=== PATIENT | female | born 1950 | race Caucasian/White ===

== ENCOUNTER 2018-02-03 10:13 | Day surgery (SDC) | payer MEDICARE ==
[~2018-02-03 10:13] MED LIST: LIDOCAINE 1% PF 2 ML VIAL. ID; ONDANSETRON PF 4 MG/2 ML VIAL. IV; PROCHLORPERAZINE 10 MG/2 ML VIAL. IV; fentaNYL PF VIAL 100 MCG/2 ML VIAL IV
[2018-02-03] MEDS ORDERED: PROPOFOL 20 ML IV (10:52)
[2018-02-03] MEDS ORDERED: MIDAZOLAM HCL/PF 2 MG/2 ML VIAL. (10:52)
[2018-02-03] MEDS ORDERED: fentaNYL PF VIAL 100 MCG/2 ML VIAL (10:52)
[2018-02-03] MEDS ORDERED: LIDOCAINE 2% PF Vial for OR 5 ML VIAL. ×2 (10:52→11:02)
[2018-02-03] MEDS ORDERED: DEXAMETHASONE SOD PHOS 20 MG/5 ML VIAL. (10:52)
[2018-02-03] MEDS ORDERED: ONDANSETRON PF 4 MG/2 ML VIAL. (10:52)
[2018-02-03] MEDS: IV RINGERS,LACTATED 1000ML 1,000 ML IV (10:53)
[2018-02-03] MEDS: CLINDAMYCIN 900MG PREMIX 50 ML IV (11:52)
[2018-02-03] MEDS: LIDOCAINE 1% PF 30 ML VIAL. (12:04)
[2018-02-03] MEDS: BUPIVACAINE 0.5% 50 ML VIAL. (12:04)
[2018-02-03] MEDS ORDERED: SEVOFLURANE 16 TO 30 MINUTES. IH (12:27)
[2018-02-03] MEDS ORDERED: traMADol 50 MG TABLET (13:02)
[2018-02-03] MEDS: traMADol 50 MG TABLET PO (13:03)
== END 2018-02-03 13:37 | disposition home or self-care (01) ==
LOC: SURG 10:13
DX: T84.84XA Pain due to internal orthopedic prosthetic devices, implants and grafts, initial encounter (principal); K21.9 Gastro-esophageal reflux disease without esophagitis; J45.909 Unspecified asthma, uncomplicated; Z86.718 Personal history of other venous thrombosis and embolism; Z87.440 Personal history of urinary (tract) infections; G89.18 Other acute postprocedural pain; Z98.890 Other specified postprocedural states; Z87.891 Personal history of nicotine dependence; Z79.899 Other long term (current) drug therapy; Z88.0 Allergy status to penicillin; Z88.2 Allergy status to sulfonamides; Z88.5 Allergy status to narcotic agent; Y83.1 Surgical operation with implant of artificial internal device as the cause of abnormal reaction of the patient, or of later complication, without mention of misadventure at the time of the procedure; Y92.89 Other specified places as the place of occurrence of the external cause; Z72.89 Other problems related to lifestyle
CPT/HCPCS: 20680; 76000; A7015; J1100; J2250; J2405; J2704; J3010; J3490

== ENCOUNTER → 2021-05-14 | Outpatient (CLI) | payer OTHER ==
[2018-02-03 13:07] VITALS: BP 147/72
[~2021-05-14] MED LIST changes: +ACET325T9 PO; +DIPH25TA64 PO; -LIDOCAINE 1% PF 2 ML VIAL. ID; +MULT-445 PO; +NAPR220C4 PO; +ONDA8TAB12 PO; -ONDANSETRON PF 4 MG/2 ML VIAL. IV; -PROCHLORPERAZINE 10 MG/2 ML VIAL. IV; +TRAM50TA PO; -fentaNYL PF VIAL 100 MCG/2 ML VIAL IV
--- NOTE | 2021-05-14 22:33 | CARD ---
MR#: [id number] Date of Study: 05/14/2021 Ordering Physician: ROSARIO STEWARD, Referring Physician: ROSARIO STEWARD, Tech: Megan Madden [facility] APPROVED REPORT EXAM: Two-dimensional and M-mode echocardiogram with Doppler and color Doppler. Other Information Quality : AverageHR: 63bpm Rhythm : NSR INDICATION Murmur 2D DIMENSIONS RVDd3.3 (2.9-3.5cm)Left Atrium(2D)3.3 (1.6-4.0cm) IVSd1.5 (0.7-1.1cm)Aortic Root(2D)2.7 (2.0-3.7cm) LVDd4.5 (3.9-5.9cm)LVOT Diameter2.0 (1.8-2.4cm) PWd1.4 (0.7-1.1cm)LVDs2.2 (2.5-4.0cm) FS (%) 50.9 %SV75.4 ml LVEF(%)82.3 (>50%) Aortic Valve AoV Peak Addison.211.7cm/sAoV VTI46.5cm AO Peak GR.17.9mmHgLVOT Peak Addison.114.7cm/s AO Mean GR.9mmHgAVA (VMAX)1.68cm2 Mitral Valve MV E Vlgmrbiy96.4cm/sMV DECEL JFIN893ze MV A Opphbwbj50.5cm/sE/A Ratio0.8 Pulmonary Valve PV Peak Vlalkoeq904.2cm/s Tricuspid Valve TR P. Dpumuojc201oa/sTR Peak Gr.31mmHg LEFT VENTRICLE The left ventricle is normal size. There is mild concentric left ventricular hypertrophy. The left ve ntricular systolic function is normal and the ejection fraction is within normal range. Estimated eje ction fraction 65%. There is normal LV segmental wall motion. Transmitral Doppler flow pattern is Gra de I-abnormal relaxation pattern. RIGHT VENTRICLE The right ventricle is normal size. There is normal right ventricular wall thickness. The right ventr icular systolic function is normal. ATRIA The left atrium size is normal. The right atrium size is normal. The interatrial septum is intact wit h no evidence for an atrial septal defect or patent foramen ovale as noted on 2-D or Doppler imaging. AORTIC VALVE The aortic valve is calcified with restricted leaflet motion. Doppler and Color Flow revealed no sign ificant aortic regurgitation. There is mild aortic stenosis visually. Color/doppler evaluation reveal s no significant stenosis by gradient criteria. MITRAL VALVE The mitral valve is normal in structure and function. There is no evidence of mitral valve prolapse. There is no mitral valve stenosis. Doppler and Color-flow revealed mild mitral regurgitation. TRICUSPID VALVE The tricuspid valve is normal in structure and function. Doppler and Color Flow revealed mild tricusp id regurgitation. RVSP 31 mm Hg. There is no tricuspid valve stenosis. PULMONIC VALVE Doppler and Color Flow revealed no pulmonic valvular regurgitation. There is no pulmonic valvular daniela nosis. GREAT VESSELS The aortic root is normal in size. The ascending aorta is normal in size. The IVC is normal in size a nd collapses >50% with inspiration. PERICARDIAL EFFUSION There is no evidence of significant pericardial effusion. Critical Notification Critical Value: No <Conclusion> The left ventricular systolic function is normal and the ejection fraction is within normal range. E stimated ejection fraction 65%. There is normal LV segmental wall motion. There is mild concentric left ventricular hypertrophy. There is mild aortic stenosis visually. Color/doppler evaluation reveals no significant stenosis by g radient criteria. Doppler and Color Flow revealed mild tricuspid regurgitation. RVSP 31 mm Hg. Signed by : Rosario Steward, Electronically Approved : 05/14/2021 22:32:18
== END ==
LOC: ECHO 12:49
PROVIDERS: ATTEND Internal Medicine Cardiovascular Disease
DX: I08.3 Combined rheumatic disorders of mitral, aortic and tricuspid valves (principal); R01.1 Cardiac murmur, unspecified
CPT/HCPCS: 93306

== ENCOUNTER → 2021-05-27 | Outpatient (CLI) | payer OTHER ==
[2018-02-03 13:07] VITALS: BP 147/72
[~2021-05-27] MED LIST changes: +CONTRAST GIVEN. MC PRN; +IOHEXOL 300 MG/ML 100ML VIAL. IV ONE
--- NOTE | 2021-05-27 12:13 | KCIC ---
CT THORAX W History: Dyspnea. Left-sided chest pain for one month. Comparison: None. Technique: CT of the chest with intravenous contrast. Multiplanar reconstruction are provided. Findings: Pulmonary arteries: No large or central pulmonary embolism. Aorta and great vessels: No aneurysm or dissection of the aortic arch or thoracic aorta is seen. Thyroid: No significant abnormalities. Mediastinum and samira: No mediastinal masses or adenopathy is seen. Esophagus: The visualized esophagus is normal. Heart: The heart is normal in size. There is no pericardial effusion. Mild coronary artery calcificat ion. Airways, Lungs, Pleura: Airways are clear. No bronchiectasis. 1.0 x 0.4 cm nodule along the left neda r fissure and additional 0.4 cm left major fissural nodule (axial image 34 and 36). 0.5 cm right neda r fissural nodule (axial 35 toes.. Mild right middle lobe atelectatic change/scarring. Upper abdomen: Limited evaluation of the upper abdomen is unremarkable. Osseous structures and soft tissues: Within normal limits for age. Impression: 1. No significant airspace consolidation. 2. A few bilateral small nodules which most likely represent benign fissural lymph nodes. ------ Exposure: One or more of the following individualized dose reduction techniques were utilized for thi s examination: 1. Automated exposure control 2. Adjustment of the mA and/or kV according to patient size 3. Use of iterative reconstruction technique. Electronically signed by: Javier Bailey MD (05/27/2021 12:11 PM) [facility]
--- NOTE | 2021-05-27 12:26 | KCIC ---
INDICATION: Screening for osteopenia/osteoporosis. Reason: MENOPAUSAL/POST MENOPAUSAL DISORDER / Spl . Instructions: / History: COMPARISON: None. TECHNIQUE: Bone densitometry was performed through the lumbar spine and proximal femur. IMPRESSION: Lumbar Spine: BMD: 0.88 T-Score: -1.5 Range: Osteopenic Proximal Femur: BMD: 0.84 T-Score: -0.8 Range: Lower limits of normal World Health Organization Criteria for Bone Density: T-Score: > -1.0: Normal Range < -1.0 to -2.5: Osteopenic Range < -2.5: Osteoporotic Range Electronically signed by: Toby Guerra MD (05/27/2021 12:24 PM) [id number]
== END ==
LOC: KCIC DEXA 10:16
PROVIDERS: ATTEND Nurse Practitioner
DX: M85.88 Other specified disorders of bone density and structure, other site (principal); R91.8 Other nonspecific abnormal finding of lung field; R06.00 Dyspnea, unspecified; I25.10 Atherosclerotic heart disease of native coronary artery without angina pectoris; Z87.891 Personal history of nicotine dependence
CPT/HCPCS: 71260; 77080; 82565; Q9967